=== PATIENT | female | born 1990 | race African-American/Black ===

== ENCOUNTER 2018-05-28 21:30 | Inpatient (IN) ==
[2018-05-28] MEDS ORDERED: MEPERIDINE 50 MG/1 ML VIAL IM PRN (21:44)
[2018-05-28] MEDS ORDERED: ONDANSETRON 4 MG/2 ML VIAL IV PRN ×2 (21:44→22:23)
[2018-05-28] MEDS ORDERED: LIDOCAINE 1% 50 ML VIAL ONE (21:48)
[2018-05-28] MEDS ORDERED: AMPICILLIN INJ 2,000 MG in SODIUM CHLORIDE 0.9% 100 ML IV ONE (21:48)
[2018-05-28] MEDS ORDERED: MEPERIDINE 50 MG/1 ML VIAL ONE (21:48)
[2018-05-28] MEDS ORDERED: miSOPROStol 200 MCG TABLET ONE (21:48)
[2018-05-28] MEDS ORDERED: OXYTOCIN/LR 20 UNIT/1,000 ML BAG IV ONE ×3 (21:49→22:23)
[2018-05-28] MEDS ORDERED: AMPICILLIN 2,000 MG VIAL ONE (21:49)
[2018-05-28] MEDS ORDERED: METHYLERGONOVINE 0.2 MG/1 ML AMP ONE (21:49)
[2018-05-28] MEDS ORDERED: SODIUM CHLORIDE 0.9% 0 ML IV ONE (21:50)
[2018-05-28] MEDS ORDERED: LACTATED RINGERS 1,000 ML IV SCH (22:00)
[2018-05-28 22:07] LABS: Basophils # 0.1 10*3/uL (0.0-0.2); Basophils % 0.4 % (0.0-0.8); Eosinophils # 0.1 10*3/uL (0.0-0.87); Eosinophils % 0.6 % (0.00-10.9); Hematocrit 34.5 VOL% (35.7-47.0); Hemoglobin 11.9 GM/DL (12.0-16.0); Immature Granulocytes % 0.4 %; Immature Granulocytes Absolute 0.05 #; Lymphocytes # 2.6 10*3/uL (1.4-4.0); Lymphocytes % 20.6 % (21.3-54.2); Mean Corpuscular HGB Conc 34.5 GM/DL (32-36); Mean Corpuscular Hemoglobin 33 PG (27-34); Mean Corpuscular Volume 95.8 FL (87-102); Mean Platelet Volume 9.5 FL (9.6-12.0); Monocytes # 1.1 10*3/uL (0.11-0.8); Monocytes % 8.7 % (1.7-12.7); Neutrophils # 8.8 10*3/uL (1.4-7.4); Neutrophils % 69.3 % (38.7-73.9); Platelet Count 229 T/CUMM (130-400); Red Cell Distribution Width 12.6 % (9.3-17.3); White Blood Count 12.7 T/CUMM (4-12)
[2018-05-28] MEDS ORDERED: BISACODYL 10 MG SUPP RECTAL PRN (22:23)
[2018-05-28] MEDS ORDERED: LANOLIN 50% CREAM 0.3 OZ TUBE TOP PRN (22:23)
[2018-05-28] MEDS ORDERED: MEASLES/MUMPS/RUBELLA VACCINE 0.5 ML VIAL SUBCUT ONE (22:23)
[2018-05-28] MEDS ORDERED: WITCH HAZEL PADS 100/JAR TOP PRN (22:23)
[2018-05-28] MEDS ORDERED: DIPH/TET/ACEL PERT BOOSTER VACCINE 0.5 ML VIAL IM ONE (22:23)
[2018-05-28] MEDS ORDERED: HYDROCORTISONE 2.5% RECTAL CREAM 30 GM TUBE TOP PRN (22:23)
[2018-05-28] MEDS ORDERED: BENZOCAINE 20%/MENTHOL 0.5% SPRAY 56 GM CAN TOP PRN (22:23)
[2018-05-28] MEDS ORDERED: ACETAMINOPHEN 325 MG TABLET PO PRN (22:23)
[2018-05-28] MEDS ORDERED: oxyCODONE/ACETAMINOPHEN 5-325 MG TABLET PO PRN ×2 (22:23)
[2018-05-28] MEDS ORDERED: RHO(D) IMMUNE GLOBULIN 300 MCG SYRINGE IM ONE (22:23)
[2018-05-28 22:28] LABS: Albumin 2.8 G/DL (3.4-5.0); Bilirubin,Total 0.4 MG/DL (0.2-1.0); Calcium 8.4 MG/DL (8.5-10.1); Osmolality,Calculated 273.7 MOS/KG (273-304); Potassium 3.4 MMOL/L (3.5-5.1); Total Protein 6.8 G/DL (6.4-8.3)
[2018-05-28] MEDS ORDERED: MEPERIDINE 50 MG/1 ML VIAL IV ONE (23:08)
[2018-05-29] MEDS ORDERED: INFLUENZA VIRUS VACCINE 0.5 ML SYRINGE IM ONE (02:07)
[2018-05-29] MEDS: IBUPROFEN 800 MG TABLET PO PRN ×3 (02:13→18:28)
[2018-05-29 06:28] LABS: Basophils % 0.2 % (0.0-0.8); Eosinophils % 0.1 % (0.00-10.9); Hematocrit 28.8 VOL% (35.7-47.0); Hemoglobin 9.8 GM/DL (12.0-16.0); Immature Granulocytes % 0.3 %; Immature Granulocytes Absolute 0.03 #; Lymphocytes # 1.1 10*3/uL (1.4-4.0); Lymphocytes % 10.2 % (21.3-54.2); Mean Corpuscular Hemoglobin 33 PG (27-34); Mean Corpuscular Volume 96.6 FL (87-102); Mean Platelet Volume 9.7 FL (9.6-12.0); Monocytes % 9.1 % (1.7-12.7); Neutrophils # 8.9 10*3/uL (1.4-7.4); Neutrophils % 80.1 % (38.7-73.9); Platelet Count 184 T/CUMM (130-400); Red Blood Count 2.98 MC/CUMM (3.8-5.5); Red Cell Distribution Width 12.5 % (9.3-17.3); White Blood Count 11.2 T/CUMM (4-12)
[2018-05-29] MEDS: DOCUSATE SODIUM 100 MG CAPSULE PO SCH ×2 (08:25→20:48)
[2018-05-30 07:15] VITALS: BP 106/70
[2018-05-30] MEDS: DOCUSATE SODIUM 100 MG CAPSULE PO SCH (08:14)
[2018-05-30] MEDS: IBUPROFEN 800 MG TABLET PO PRN (08:14)
== END 2018-05-30 11:45 | disposition home or self-care (01) | DRG 560 ==
LOC: N.LDOUT 21:30 → N.LD 21:31 → N.OB 05-29 01:50
PROVIDERS: ADMIT Obstetrics & Gynecology; ATTEND Obstetrics & Gynecology

== ENCOUNTER 2019-06-19 09:01 | Inpatient (IN) ==
[2019-06-19] MEDS ORDERED: ALBUTEROL 2.5 MG/3 ML NEB RESP TX STA ×2 (10:38→12:27)
[2019-06-19] MEDS ORDERED: methylPREDNISolone SOD SUC 125 MG/2 ML VIAL IV STA (11:43)
[2019-06-19] MEDS ORDERED: cefTRIAXone 1,000 MG in SODIUM CHLORIDE 0.9% 100 ML IV STA (12:40)
[2019-06-19 12:44] LABS: Basophils % 0.2 % (0.0-0.8); Eosinophils # 0.1 10*3/uL (0.0-0.87); Eosinophils % 0.7 % (0.00-10.9); Hematocrit 36.6 VOL% (35.7-47.0); Hemoglobin 12.3 GM/DL (12.0-16.0); Immature Granulocytes % 0.5 %; Immature Granulocytes Absolute 0.09 #; Lymphocytes # 1.1 10*3/uL (1.4-4.0); Lymphocytes % 6.5 % (21.3-54.2); Mean Corpuscular HGB Conc 33.6 GM/DL (32-36); Mean Corpuscular Volume 94.8 FL (87-102); Mean Platelet Volume 10.3 FL (9.6-12.0); Monocytes % 4.9 % (1.7-12.7); Neutrophils % 87.2 % (38.7-73.9); Platelet Count 246 T/CUMM (130-400); Red Blood Count 3.86 MC/CUMM (3.8-5.5); Red Cell Distribution Width 12.3 % (9.3-17.3); White Blood Count 16.7 T/CUMM (4-12)
[2019-06-19 12:52] LABS: Albumin 2.8 G/DL (3.4-5.0); Bilirubin,Total 0.6 MG/DL (0.2-1.0); Calcium 8.5 MG/DL (8.5-10.1); Osmolality,Calculated 270.7 MOS/KG (273-304); Total Protein 6.9 G/DL (6.4-8.3)
[2019-06-19] MEDS ORDERED: cefTRIAXone 500 MG VIAL ONE (13:05)
[2019-06-19] MEDS ORDERED: POTASSIUM CHLORIDE 20 MEQ TABLET PO STA (13:29)
[2019-06-19] MEDS ORDERED: ACETAMINOPHEN 325 MG TABLET PO PRN (14:25)
[2019-06-19] MEDS ORDERED: AZITHROMYCIN INJ 500 MG in SODIUM CHLORIDE 0.9% 250 ML IV SCH (14:25)
[2019-06-19] MEDS ORDERED: ALBUTEROL 2.5 MG/3 ML NEB RESP TX PRN (14:25)
[2019-06-19] MEDS ORDERED: guaiFENesin/CODEINE 5 ML LIQUID PO PRN (14:28)
[2019-06-19] MEDS ORDERED: LACTATED RINGERS 1,000 ML IV SCH (14:30)
[2019-06-19] MEDS ORDERED: ERYTHROMYCIN INJ 500 MG in SODIUM CHLORIDE 0.9% 100 ML IV SCH (16:00)
[2019-06-19] MEDS: AZITHROMYCIN 250 MG TABLET PO SCH (16:42)
[2019-06-19] MEDS: methylPREDNISolone SOD SUC 125 MG/2 ML VIAL IV SCH (20:14)
[2019-06-19] MEDS: ALBUTEROL 2.5 MG/3 ML NEB RESP TX SCH (20:48)
[2019-06-20] MEDS: methylPREDNISolone SOD SUC 125 MG/2 ML VIAL IV SCH (04:14)
[2019-06-20] MEDS: ALBUTEROL 2.5 MG/3 ML NEB RESP TX SCH ×4 (04:40→19:24)
[2019-06-20] MEDS ORDERED: cefTRIAXone 1,000 MG in SODIUM CHLORIDE 0.9% 100 ML IV SCH (08:00)
[2019-06-20] MEDS: AZITHROMYCIN 250 MG TABLET PO SCH (10:16)
[2019-06-20] MEDS ORDERED: cefTRIAXone 1,000 MG in SYRINGE 1 EACH IV SCH (13:00)
[2019-06-21] MEDS: ALBUTEROL 2.5 MG/3 ML NEB RESP TX SCH ×2 (01:03→08:45)
[2019-06-21] MEDS: AZITHROMYCIN 250 MG TABLET PO SCH (10:26)
[2019-06-21 11:40] VITALS: BP 103/63
== END 2019-06-21 15:00 | disposition home or self-care (01) | DRG 566 ==
LOC: N.ED 09:01 → N.EDINP 09:01 → N.OB 14:56
PROVIDERS: ADMIT Obstetrics & Gynecology; ATTEND Obstetrics & Gynecology

== ENCOUNTER 2019-07-31 10:28 | Inpatient (IN) ==
[2019-07-31] MEDS ORDERED: ONDANSETRON 4 MG/2 ML VIAL IV PRN (10:54)
[2019-07-31] MEDS ORDERED: OXYTOCIN/LR 20 UNIT/1,000 ML BAG IV SCH (11:00)
[2019-07-31] MEDS ORDERED: LACTATED RINGERS 1,000 ML IV SCH (11:00)
[2019-07-31 11:17] LABS: Basophils % 0.3 % (0.0-0.8); Eosinophils # 0.1 10*3/uL (0.0-0.87); Eosinophils % 0.9 % (0.00-10.9); Hematocrit 34.4 VOL% (35.7-47.0); Hemoglobin 11.6 GM/DL (12.0-16.0); Immature Granulocytes % 0.3 %; Immature Granulocytes Absolute 0.03 #; Lymphocytes # 2.3 10*3/uL (1.4-4.0); Lymphocytes % 20.8 % (21.3-54.2); Mean Corpuscular HGB Conc 33.7 GM/DL (32-36); Mean Platelet Volume 9.8 FL (9.6-12.0); Monocytes % 8.1 % (1.7-12.7); Neutrophils % 69.6 % (38.7-73.9); Platelet Count 294 T/CUMM (130-400); Red Cell Distribution Width 12.9 % (9.3-17.3)
[2019-07-31] MEDS ORDERED: AMPICILLIN INJ 2,000 MG in SODIUM CHLORIDE 0.9% 100 ML IV ONE (11:20)
[2019-07-31] MEDS ORDERED: FAMOTIDINE 20 MG/2 ML VIAL IV ONE (11:21)
[2019-07-31] MEDS ORDERED: LACTATED RINGERS 1,000 ML IV ONE (11:21)
[2019-07-31] MEDS ORDERED: ePHEDrine 50 MG/ML AMP IV PRN (11:21)
[2019-07-31] MEDS ORDERED: diphenhydrAMINE 50 MG/1 ML VIAL IV PRN ×2 (11:21)
[2019-07-31] MEDS ORDERED: CITRIC ACID/SODIUM CITRATE 30 ML UDCUP PO ONE (11:21)
[2019-07-31] MEDS ORDERED: NALOXONE 0.4 MG/ML VIAL IV PRN (11:21)
[2019-07-31] MEDS ORDERED: fentaNYL 2 MCG/ROPIV 0.2% EPID 100 ML EPIDURAL SCH (11:30)
[2019-07-31 11:41] LABS: Alanine Aminotransferase 13 U/L (13-56); Albumin 2.5 G/DL (3.4-5.0); Alkaline Phosphatase 220 U/L (45-117); Aspartate Amino Transferase 19 U/L (0-37); Bilirubin,Total < 0.39 MG/DL (0.2-1.0); Blood Urea Nitrogen 5 MG/DL (7-18); Calcium 8.3 MG/DL (8.5-10.1); Estimated Glom Filtration Rate 178 ML/MIN; Glucose 82 MG/DL (74-106); Osmolality,Calculated 272.5 MOS/KG (273-304); Total Protein 6.7 G/DL (6.4-8.3)
[2019-07-31 13:47] LABS: Apearance,Urine CLEAR (Clear); Bilirubin,Urine Negative (Negative); Blood, Urine Negative (Negative); Glucose,Urine (UA) Negative (Negative); Ketones,Urine 5 mg/dL (Negative); Mucus,Urine Occasional /LPF (Occasional); Nitrite,Urine Negative (Negative); Protein,Urine Negative; RBC,Urine <1 /HPF (0-4); Squamous Epithelial Cell,Urine Occasional /HPF (0-10); Urine Color Yellow (Yellow); Urine Specific Gravity 1.017 (1.001-1.035); Urine Urobilinogen < 2.0 EU/DL (0.2-1.0); WBC,Urine 1 /HPF (0-6)
[2019-07-31] MEDS ORDERED: AMPICILLIN INJ 1,000 MG in SODIUM CHLORIDE 0.9% 100 ML IV SCH (16:00)
[2019-07-31] MEDS ORDERED: oxyCODONE/ACETAMINOPHEN 5-325 MG TABLET PO PRN (16:50)
[2019-07-31] MEDS ORDERED: OXYTOCIN/LR 20 UNIT/1,000 ML BAG IV ONE (16:50)
[2019-07-31] MEDS ORDERED: ACETAMINOPHEN 325 MG TABLET PO PRN (16:50)
[2019-07-31] MEDS ORDERED: LANOLIN 50% CREAM 0.3 OZ TUBE TOP PRN (16:50)
[2019-07-31] MEDS ORDERED: DIPH/TET/ACEL PERT BOOSTER VACCINE 0.5 ML VIAL IM ONE (16:50)
[2019-07-31] MEDS ORDERED: HYDROCORTISONE 2.5% RECTAL CREAM 30 GM TUBE TOP PRN (16:50)
[2019-07-31] MEDS ORDERED: BENZOCAINE 20%/MENTHOL 0.5% SPRAY 56 GM CAN TOP PRN (16:50)
[2019-07-31] MEDS ORDERED: WITCH HAZEL PADS 100/JAR TOP PRN (16:50)
[2019-07-31] MEDS ORDERED: BISACODYL 10 MG SUPP RECTAL PRN (16:50)
[2019-07-31] MEDS ORDERED: MEASLES/MUMPS/RUBELLA VACCINE 0.5 ML VIAL SUBCUT ONE (16:50)
[2019-07-31] MEDS ORDERED: RHO(D) IMMUNE GLOBULIN 300 MCG SYRINGE IM ONE (16:50)
[2019-07-31] MEDS: oxyCODONE/ACETAMINOPHEN 5-325 MG TABLET PO PRN (18:32)
[2019-07-31] MEDS: IBUPROFEN 800 MG TABLET PO PRN (18:32)
[2019-07-31] MEDS: DOCUSATE SODIUM 100 MG CAPSULE PO SCH (21:15)
[2019-08-01] MEDS: oxyCODONE/ACETAMINOPHEN 5-325 MG TABLET PO PRN (00:58)
[2019-08-01] MEDS: IBUPROFEN 800 MG TABLET PO PRN ×2 (00:59→09:23)
[2019-08-01 03:34] LABS: Basophils # 0.1 10*3/uL (0.0-0.2); Basophils % 0.5 % (0.0-0.8); Eosinophils # 0.1 10*3/uL (0.0-0.87); Eosinophils % 1.1 % (0.00-10.9); Hematocrit 32.4 VOL% (35.7-47.0); Hemoglobin 10.7 GM/DL (12.0-16.0); Immature Granulocytes % 0.3 %; Immature Granulocytes Absolute 0.04 #; Lymphocytes # 2.7 10*3/uL (1.4-4.0); Lymphocytes % 20.9 % (21.3-54.2); Mean Corpuscular Volume 94.5 FL (87-102); Mean Platelet Volume 10.1 FL (9.6-12.0); Monocytes % 6.9 % (1.7-12.7); Neutrophils % 70.3 % (38.7-73.9); Platelet Count 256 T/CUMM (130-400); Red Blood Count 3.43 MC/CUMM (3.8-5.5); White Blood Count 13.1 T/CUMM (4-12)
[2019-08-01 07:21] VITALS: BP 107/68
[2019-08-01] MEDS: DOCUSATE SODIUM 100 MG CAPSULE PO SCH (09:22)
[2019-08-01] MEDS ORDERED: INFLUENZA VIRUS VACCINE 0.5 ML SYRINGE IM ONE ×2 (11:16→14:00)
== END 2019-08-01 16:30 | disposition home or self-care (01) | DRG 560 ==
LOC: N.LDOUT 10:28 → N.LD 10:32 → N.OB 17:00
PROVIDERS: ADMIT Obstetrics & Gynecology; ATTEND Obstetrics & Gynecology